=== PATIENT | female | born 1960 | race Caucasian/White ===

== ENCOUNTER 2017-02-24 07:51 | Inpatient (IN) | payer BC, OTHER ==
[~2017-02-24 07:51] MED LIST: MORPHINE SULFATE 15 MG TABLET.SA PO PRN; ROPIVACAINE HCL/PF 100 MG, EPINEPHrine 0.2 MG, KETOROLAC TROMETHAMINE 30 MG in NORMAL S... IJ PRN; TRANEXAMIC ACID 1,000 MG in NORMAL SALINE 100 ML IV PRN; ceFAZolin SODIUM 1 GM VIAL IV PRN
[2017-02-24] MEDS: RINGERS SOLUTION,LACTATED 1,000 ML IV PRN ×2 (08:20→10:30)
--- NOTE | 2017-02-24 09:59 | PREOP NOTE ---
Preoperative Progress Note - Preoperative Changes Changes to Preop Condition?: No Changes
[2017-02-24] MEDS ORDERED: RINGERS SOLUTION,LACTATED 1,000 ML IV ONE ×2 (11:10→12:50)
[2017-02-24] MEDS ORDERED: ACETAMINOPHEN 500 MG TABLET PO PRN (12:44)
[2017-02-24] MEDS ORDERED: diphenhydrAMINE HCL 50 MG/ML VIAL IV PRN (12:44)
[2017-02-24] MEDS ORDERED: PROMETHAZINE HCL 5 MG in DEXTROSE 5 % IN WATER 50 ML IV PRN ×2 (12:44)
[2017-02-24] MEDS ORDERED: ZOLPIDEM TARTRATE 5 MG TABLET PO PRN (12:44)
[2017-02-24] MEDS ORDERED: MAGNESIUM HYDROXIDE 30 ML UDC PO PRN (12:44)
[2017-02-24] MEDS ORDERED: HYDROmorphone HCL 1 MG/ML DISP.SYRIN IV PRN (12:44)
[2017-02-24] MEDS ORDERED: MAG HYDROX/ALUMINUM HYD/SIMETH 30 ML UDC PO PRN (12:44)
--- NOTE | 2017-02-24 12:53 | OR ---
Operative Report - Dictated Report Narrative: Date: 02/24/2017 Preoperative diagnosis: Left hip degenerative joint disease. Postoperative diagnosis: Left hip degenerative joint disease. Intraoperative proximal femur fracture Procedure: Left Total hip arthroplasty. Cerclage cable left proximal femur fracture Surgeon: Edison Welch M.D. Puppy Walker: Jefry Palmer PA-C Anesthesia: Spinal and local periarticular joint injection. Complications: None Specimens: Bone for disposal. Estimated blood loss: 150 milliliters. Retained implants: Depuy Barrow size 4 femoral stem standard offset. Size 54 millimeter outside diameter 3-hole Carney Gription acetabular cup. 54 millimeter outside by 36 millimeter inside diameter highly cross-linked acetabular liner. 36 millimeter diameter +5 millimeter cobalt chromium femoral head. Cancellous 6.5mm screw 30 millimeter length. Synthes 1.7 mm cobalt chrome cable with titanium crimp Indications: Mrs. Sebastian is a 56-year-old female who has had long-standing left hip pain. This patient was followed in my clinic for period of time with significant complaints of left hip pain consistent with arthritic changes. She failed conservative measures including but not limited to activity modification , passage of time, medications, and other conservative measures. Patient wished to proceed with surgical treatment. The risks, benefits, and alternatives were discussed in clinic. The risks of , blood clots, bleeding, infection, nerve/tendon blood vessel/ injury, malposition of components, dislocation and/or instability of joint, intraoperative fracture, postoperative limited range of motion, persistent pain, failure of components, and need for additional procedures. Patient wished to proceed. Consent was obtained after answering all questions. Procedure: After marking the correct extremity on the floor, the patient was taken to the operating room. A timeout was performed. IV antibiotics consisting of Ancef were administered prior to the procedure. A spinal anesthetic was induced by anesthesia. A Mccall catheter was inserted. The patient was then transitioned to a lateral position on a well-padded pegboard. An axillary roll was placed. The head was in neutral position. The non- operative down leg was well-padded with SCD and JENNIFER hose in place. The arms were supported and padded to protect from any undue pressure on the bony prominences and nerves. A well-padded anterior and posterior pelvic and chest posts were secured in order to maintain a stable position of the pelvis. This was placed so that the pelvis was perpendicular to the floor. The body was in line with the pelvis. Once it was felt that we had protected all the bony prominences and the patient was well secured with a safety belt as well, the leg was pre-scrubbed with alcohol, prepped and draped in a standard sterile fashion. A standard anterior lateral hip incision was marked out over the greater trochanter. Ioban drapes were then placed. The skin incision was then made. Sharp dissection with a scalpel utilizing cautery for hemostasis was carried out down to the gluteus and iliotibial band fascia. This was split in line with the skin incision. The greater trochanter bursa was excised. The anterior and posterior margins of the abductor tendon were identified. The anterior 1/2-1/3 of the tendon was tagged and reflected off the greater trochanter leaving a sleeve of tendon for repair at the completion of the case. This exposed the underlying hip joint capsule. A limb length stitch was placed in the skin and referencedd off a issac on the greater trochanter for evaluation of intraoperative limb lengths. An inverted T-type capsulotomy was made extending this up to the brim of the acetabulum. Using Homans to assist with elevation of the soft tissues off the anterior, superior, and inferior aspects of the femoral neck, the hip was then placed in a figure 4 position and the femoral head was dislocated. With the leg in an externally rotated and adducted position, the cutting flag was utilized in order to issac for a standard femoral neck cut approximately a fingerbreadth above the level of the lesser trochanter. This was done with reference to pre-operative films and overall alignment. This was done while protecting the surrounding soft tissues with Homans. The femoral head was then removed and sized for guidance on preparation of the acetabulum. It was noted that there was loss of articular cartilage on both the femoral head and weightbearing portions of the acetabulum. We then returned the leg to the table and turned our attention to the acetabulum. While protecting the surrounding soft tissues, the labrum and remaining tissue in the fovea were excised using a scalpel and cautery. A series of reamers up to size 54 millimeter were utilized to prepare the acetabulum. The final reamer had good purchase and exposed the bleeding subchondral bone. The acetabulum was then thoroughly irrigated ensuring that all bony and cartilaginous materials were removed, and the final acetabular shell was impacted into place. This was placed in approximately 45 degrees of abduction and 20 degrees of anteversion utilizing the outrigger and body axis for alignment. This had a good press fit. 1 6.5mm cancellous screw was placed in the superior posterior quadrant of the acetabulum. The shell was then thoroughly irrigated and the final polyethylene was impacted into place ensuring that it seated completely. This was then protected with a sponge while we returned our attention to the femur. With the leg in a figure 4 position, utilizing Homans for soft tissue protection , a box cutting osteotome, followed by Tenzin awl, followed by serial reamers and broaches were utilized in order to prepare the femur. It was found that a size 4 broach gave good axial and rotational stability. The proximal femur was visualized to ensure that there were no signs of fracture. A series of heads and necks were trialed. It was found that a standard neck and a + 5mm femoral head gave good overall stability. There was minimal longitudinal instability. With the leg in the position of sleep, the femoral head was well covered. Hip range of motion was able to reach full extension and external rotation to greater than 75 degrees prior to impingement along the posterior acetabulum. The hip was able to be flexed to greater than 90 degrees with internal rotation greater than 60 degrees prior to anterior impingement. The limb lengths were near equal based on comparison to the contralateral side and the prior placed limb length stitch. At this point it was felt these were the appropriately sized femoral components as well as neck and femoral head. The trial implants were removed. The femur was thoroughly irrigated. Upon placing the final implants was noted that it subsided more than the trial and then it was discovered that there was a crack over the anterior aspect of the femur between the calcar and the greater trochanter. The implant was then removed. There did not appear to be a posterior or calcar split and the remaining tuberosity was otherwise stable. A single 1.7 mm cobalt chrome cable was then placed in a cerclage fashion staying close to the bone using a passing device. This was placed along the calcar and onto the inferior portion of the greater trochanter. This resulted in compression of the fracture site and the cable was tensioned and crimped. The final implants were then re-impacted into place, and the hip was reduced. After ensuring that there was no additional damage to the proximal femur, the standard periarticular joint injection of ropivacaine, Toradol, and epinephrine were injected into the joint capsule and surrounding soft tissues. Anesthesia then administered intravenous tranexamic acid. The capsule was repaired with a single interrupted #1 Vicryl. The abductor tendon was repaired to the greater trochanter utilizing #5 Ethibond through drill holes. This was oversewn with #1 Vicryl. The fascia was closed with interrupted #1 Vicryl. The wounds were thoroughly irrigated as we closed in layers. The deep and subcutaneous fat layers were closed with 0 and 3-0 Vicryl respectively. The subcutaneous tissue was closed with a running 3-0 Vicryl and the skin with 3-0 Monocryl and Prineo Dermabond dressing. All sponge, needle, blade, and instrument counts were correct prior to closing the wounds. Sterile dressings consisting of 4 x 4's and tape were applied. The patient was awoken and transferred to her hospital bed and then to the postanesthesia care unit in stable condition. Postoperative condition: The plan is to admit to the medical/surgical inpatient floor postoperatively. There will be a projected 2 to 4 day hospital stay. Postoperatively 24 hours of IV antibiotics, pain control, physical therapy, occupational therapy, and medical comanagement will be utilized. Patient will be 50%weightbearing with anterior hip precautions. Postoperative films will be obtained in the recovery room.
[2017-02-24] MEDS: KETOROLAC TROMETHAMINE 15 MG/ML VIAL IV SCH ×2 (13:57→19:05)
[2017-02-24] MEDS: ceFAZolin SODIUM 1 GM in DEXTROSE 5 % IN WATER 100 ML IV SCH ×4 (13:57→20:44)
[2017-02-24] MEDS: DEXTROSE 5%-LACTATED RINGERS 1,000 ML IV PRN ×2 (13:59→22:30)
[2017-02-24] MEDS: oxyCODONE HCL/ACETAMINOPHEN 1 TAB TABLET PO PRN ×2 (15:37→20:46)
[2017-02-24] MEDS: ONDANSETRON HCL/PF 2 MG/ML VIAL IV PRN ×2 (16:15→20:56)
[2017-02-24] MEDS: MORPHINE SULFATE 15 MG TABLET.SA PO SCH (20:46)
[2017-02-24] MEDS: SENNOSIDES/DOCUSATE SODIUM 1 TAB TABLET PO SCH (20:47)
[2017-02-24] MEDS: ROSUVASTATIN CALCIUM 10 MG TABLET PO SCH (20:47)
[2017-02-25] MEDS: KETOROLAC TROMETHAMINE 15 MG/ML VIAL IV SCH ×4 (00:30→18:02)
[2017-02-25] MEDS: ceFAZolin SODIUM 1 GM in DEXTROSE 5 % IN WATER 100 ML IV SCH ×2 (02:18)
[2017-02-25 05:40] LABS: Hematocrit 36.5 % (37.0-47.0); Hemoglobin 11.5 gm/dL (12.5-16.0); Mean Cell Volume 89.5 fl (78-100); Mean Corpuscular Hemoglobin 28.2 pg (27-31); Mean Corpuscular Hgb Conc 31.5 g/dl (32-36); Mean Platelet Volume 9.8 fl (6.0-9.5); Platelet Count 216 K/mm3 (150-450); Red Blood Count 4.08 M/mm3 (4.2-5.4); Red Cell Distribution Width 13.3 % (11.5-14.0); White Blood Count 11.5 K/mm3 (4.0-10.5)
[2017-02-25 05:48] LABS: Anion Gap 9.3 mmol/L (6.8-13.8); BUN/Creatinine Ratio 10.8 (9.0-21.6); Calcium * 8.3 mg/dL (7.9-10.9); Carbon Dioxide 29.6 mmol/L (24-32.6); Estimated Creat Clear 75.7; Potassium 3.9 mmol/L (3.4-4.6)
[2017-02-25] MEDS: LEVOTHYROXINE SODIUM 112 MCG TABLET PO SCH (06:33)
[2017-02-25] MEDS ORDERED: NORMAL SALINE 1,000 ML IV PRN ×2 (08:31)
[2017-02-25] MEDS: MORPHINE SULFATE 15 MG TABLET.SA PO SCH ×2 (08:52→20:09)
--- NOTE | 2017-02-25 09:38 | PN ---
Subjective - Date and Time Seen Date: 02/25/17 Time: 08:45 Subjective Narrative: Patient seen and examined at bedside. Patient admits to feeling very dizzy/ lightheaded at the time of my exam. Mccall catheter removed this AM. Patient has not urinated on her own yet since the catheter was removed. No BM since surgery. Pain adequately controlled. Objective - Review of Systems Generalized/Overall Review: Reports: Weakness, Fatigue. Denies: Fever EENTM: Reports: No Symptoms Reported Respiratory: Reports: No Symptoms Reported Cardiac: Reports: Other - Lightheaded Abdominal: Reports: No Symptoms Reported Genitourinary Symptoms: Reports: No Symptoms Reported Musculoskeletal Complaints: Reports: Joint Pain, Other - left hip pain after surgery Neurological: Reports: No Symptoms Reported Skin: Reports: No Symptoms Reported Endocrine: Reports: No Symptoms Reported Misc: All systems neg except as marked - Vitals Vitals: Last Vital Signs Temp 36.7 C 02/25/17 06:31 Pulse 83 02/25/17 06:31 Resp 16 02/25/17 06:31 BP 109/58 02/25/17 06:31 Pulse Ox 100 02/25/17 06:31 - Abnormal Lab Findings Abnormal Lab Findings: Abnormal Lab Results 02/25/17 02/25/17 Range/Units 05:25 05:25 WBC 11.5 H (4.0-10.5) K/mm3 RBC 4.08 L (4.2-5.4) M/mm3 Hgb 11.5 L (12.5-16.0) gm/dL Hct 36.5 L (37.0-47.0) % MCHC 31.5 L (32-36) g/dl MPV 9.8 H (6.0-9.5) fl Random Glucose 136 H (70-110) mg/dL - Exam Constitutional: Present: Alert, Oriented x3, Cooperative, Well developed, Well nourished, No distress ENT Exam: Present: hearing grossly normal Respiratory: Present: lungs clear, normal breath sounds, no respiratory distress , no accessory muscle use Cardiovascular/Chest: Present: normal peripheral pulses, regular rate, rhythm, no murmur, edema - Trace edema in bilateral lower extremities Abdomen: Present: soft, nontender, nondistended, no rebound tenderness, hypoactive Extremity: Present: lower extremity edema - Trace edema in bilateral lower extremities, other - s/p left total hip with dressing in place Skin Exam: Present: warm/dry, no cyanosis Neurologic: Present: alert, normal mood/affect, oriented x 3 Appearance: Present: appropriate appearance, appropriate insight, neat, no memory impairment Eye contact: Present: cooperative, good eye contact, normal speech Thoughts: Present: normal thought pattern, no apparent hallucination Cauti Physician Documentation - Urinary Catheter Management Urethral (Mccall) Date of Insertion: 02/24/17 Time of Insertion: 10:55 Assessment/Plan Plan Narrative: IMPRESSION & PLAN: Left Hip DJD S/P Left Total Hip Arthroplasty on 02/24/2017 -Post-op cares including pain control and VTE ppx per ortho -VTE prophylaxis: JENNIFER lazcano, SCDs, Lovenox -Continue ongoing PT evaluation and treatment Post-op Normocytic Anemia -Minimally decreased hemoglobin secondary to intraoperative blood loss -No signs of active bleeding -Continue to monitor and recheck hemogram in the AM Hypotension -Patient complained of feeling dizzy/lightheaded this AM. Vitals checked and revealed a blood pressure of 94/52 mmHg. Hypotension most likely secondary to intravascular volume depletion and/or pain medication side effect. Orders placed for a 1L bolus of NS. Continue to monitor BP closely and consider further adjustments or additional boluses of IVF. Patient encouraged to drink plenty of fluids. Keep legs elevated at all times when patient is not ambulating. Leukocytosis -WBC count minimally elevated this AM at 11.5. This is likely reactive related to surgery. Patient is afebrile. Hold off on further work-up for now. Recheck CBC in AM. CHRONIC STABLE MEDICAL CONDITIONS: Hyperlipidemia: Continue home atorvastatin Hypothyroidism: Continue home synthroid - Problems/Diagnosis (1) Degenerative joint disease of left hip Problem: Chronic (2) Status post total hip replacement, left Problem: Acute (3) Postoperative anemia due to acute blood loss Problem: Acute (4) Hypotension Problem: Acute (5) Leukocytosis Problem: Acute (6) Hyperlipidemia Problem: Chronic (7) Hypothyroidism Problem: Chronic
[2017-02-25] MEDS: ONDANSETRON HCL/PF 2 MG/ML VIAL IV PRN ×2 (11:59→20:14)
[2017-02-25] MEDS: ENOXAPARIN SODIUM 40 MG/0.4 ML SYRG SC SCH (12:00)
[2017-02-25] MEDS: oxyCODONE HCL/ACETAMINOPHEN 1 TAB TABLET PO PRN ×3 (12:00→20:09)
--- NOTE | 2017-02-25 16:30 | PN ---
Subjective - Date and Time Seen Date: 02/25/17 Time: 16:28 Subjective Narrative: Subjective: Reports lightheadedness which has improved. Was able to standby the bed with therapy. Pain is well-controlled. Voiding without any complications. Tolerating by mouth intake. Denies any nausea or vomiting. Denies calf pain. Slept well. Physical exam: Alert and oriented to person, place and time Left lower Extremity: Palpable dorsalis pedis pulse. Sensation grossly intact to light touch. Dressings clean and dry. Able to flex and extend ankle and toes. No excessive drainage. Calf and thigh are soft and nontender. Assessment: Postop day 1 status post left total hip arthroplasty. Plan: Continue with physical and occupational therapy 50% weightbearing with anterior hip precautions. Continue with anticoagulation. 24 hours postoperative prophylactic antibiotics. Pain control with goal to rely on oral medications. Continue bowel regimen. Will need 6 weeks with walker or assitive device to protect joint while ambulating during the recovery process. Discharge planning. Discontinue Mccall catheter. Repeat labs in a.m. Objective - Vitals Vitals: Last Vital Signs Temp 36.4 C L 02/25/17 16:17 Pulse 80 02/25/17 16:17 Resp 16 02/25/17 16:17 BP 110/51 02/25/17 16:17 Pulse Ox 98 02/25/17 16:17 - Abnormal Lab Findings Abnormal Lab Findings: Abnormal Lab Results 02/25/17 02/25/17 Range/Units 05:25 05:25 WBC 11.5 H (4.0-10.5) K/mm3 RBC 4.08 L (4.2-5.4) M/mm3 Hgb 11.5 L (12.5-16.0) gm/dL Hct 36.5 L (37.0-47.0) % MCHC 31.5 L (32-36) g/dl MPV 9.8 H (6.0-9.5) fl Random Glucose 136 H (70-110) mg/dL Cauti Physician Documentation - Urinary Catheter Management Urethral (Mccall) Date of Insertion: 02/24/17 Time of Insertion: 10:55 Date of Removal: 02/25/17 Time of Removal: 06:30 Assessment/Plan - Problems/Diagnosis (1) Acute blood loss anemia Problem: Acute (2) Hypotension Problem: Chronic (3) Status post total hip replacement, left Problem: Acute (4) Hyperlipidemia Problem: Chronic (5) Hypothyroidism Problem: Chronic
[2017-02-25] MEDS: SENNOSIDES/DOCUSATE SODIUM 1 TAB TABLET PO SCH (20:09)
[2017-02-25] MEDS: ROSUVASTATIN CALCIUM 10 MG TABLET PO SCH (20:10)
[2017-02-26] MEDS: KETOROLAC TROMETHAMINE 15 MG/ML VIAL IV SCH ×2 (00:47→05:59)
[2017-02-26] MEDS: oxyCODONE HCL/ACETAMINOPHEN 1 TAB TABLET PO PRN ×5 (00:47→22:27)
[2017-02-26] MEDS: ONDANSETRON HCL/PF 2 MG/ML VIAL IV PRN (05:59)
[2017-02-26 06:00] LABS: Hematocrit 33.7 % (37.0-47.0); Hemoglobin 10.7 gm/dL (12.5-16.0); Mean Cell Volume 90.3 fl (78-100); Mean Corpuscular Hemoglobin 28.7 pg (27-31); Mean Corpuscular Hgb Conc 31.8 g/dl (32-36); Mean Platelet Volume 9.9 fl (6.0-9.5); Platelet Count 198 K/mm3 (150-450); Red Blood Count 3.73 M/mm3 (4.2-5.4); Red Cell Distribution Width 13.7 % (11.5-14.0); White Blood Count 12.3 K/mm3 (4.0-10.5)
[2017-02-26 06:24] LABS: Anion Gap 8.7 mmol/L (6.8-13.8); Calcium * 8.4 mg/dL (7.9-10.9); Carbon Dioxide 30.1 mmol/L (24-32.6); Estimated Creat Clear 72.8; Potassium 3.8 mmol/L (3.4-4.6)
[2017-02-26] MEDS: LEVOTHYROXINE SODIUM 112 MCG TABLET PO SCH (06:45)
[2017-02-26] MEDS: MORPHINE SULFATE 15 MG TABLET.SA PO SCH (08:56)
--- NOTE | 2017-02-26 10:24 | PN ---
Subjective - Date and Time Seen Date: 02/26/17 Time: 10:23 Subjective Narrative: Subjective: Reports intermittent dizziness with mild nausea which is improved a little bit as of this morning. Was able to walk in the encarnacion with therapy. Pain is well-controlled. Voiding without any complications. Tolerating by mouth intake. Physical exam: Alert and oriented to person, place and time Left lower Extremity: Palpable dorsalis pedis pulse. Sensation grossly intact to light touch. Dressings clean and dry. Able to flex and extend ankle and toes. No excessive drainage. Calf and thigh are soft and nontender. Assessment: Postop day 2 status post left total hip arthroplasty. Plan: Continue with physical and occupational therapy 50% weightbearing with anterior hip precautions. Continue with anticoagulation. 24 hours postoperative prophylactic antibiotics. Pain control with goal to rely on oral medications. Continue bowel regimen. Will need 6 weeks with walker or assitive device to protect joint while ambulating during the recovery process. Discharge planning. The MS Thomas was felt this morning and we will monitor for improvement in her lightheadedness. We also discussed possible Zofran as the culprit. Objective - Vitals Vitals: Last Vital Signs Temp 36.8 C 02/26/17 07:53 Pulse 80 02/26/17 07:53 Resp 18 02/26/17 07:53 BP 113/55 02/26/17 07:53 Pulse Ox 96 02/26/17 07:53 - Abnormal Lab Findings Abnormal Lab Findings: Abnormal Lab Results 02/26/17 Range/Units 05:54 WBC 12.3 H (4.0-10.5) K/mm3 RBC 3.73 L (4.2-5.4) M/mm3 Hgb 10.7 L (12.5-16.0) gm/dL Hct 33.7 L (37.0-47.0) % MCHC 31.8 L (32-36) g/dl MPV 9.9 H (6.0-9.5) fl Cauti Physician Documentation - Urinary Catheter Management Urethral (Mccall) Date of Insertion: 02/24/17 Time of Insertion: 10:55 Date of Removal: 02/25/17 Time of Removal: 06:30 Assessment/Plan - Problems/Diagnosis (1) Acute blood loss anemia Problem: Acute (2) Hypotension Problem: Chronic (3) Status post total hip replacement, left Problem: Acute (4) Hyperlipidemia Problem: Chronic (5) Hypothyroidism Problem: Chronic
[2017-02-26] MEDS: ENOXAPARIN SODIUM 40 MG/0.4 ML SYRG SC SCH (11:29)
[2017-02-26] MEDS: SENNOSIDES/DOCUSATE SODIUM 1 TAB TABLET PO SCH (21:06)
[2017-02-26] MEDS: ROSUVASTATIN CALCIUM 10 MG TABLET PO SCH (21:06)
--- NOTE | 2017-02-26 23:48 | PN ---
Subjective - Date and Time Seen Date: 02/26/17 Time: 16:30 Objective - Vitals Vitals: Last Vital Signs Temp 36.9 C 02/26/17 20:04 Pulse 91 02/26/17 20:04 Resp 18 02/26/17 20:04 BP 118/62 02/26/17 20:04 Pulse Ox 95 02/26/17 20:04 - Abnormal Lab Findings Abnormal Lab Findings: Abnormal Lab Results 02/26/17 Range/Units 05:54 WBC 12.3 H (4.0-10.5) K/mm3 RBC 3.73 L (4.2-5.4) M/mm3 Hgb 10.7 L (12.5-16.0) gm/dL Hct 33.7 L (37.0-47.0) % MCHC 31.8 L (32-36) g/dl MPV 9.9 H (6.0-9.5) fl Cauti Physician Documentation - Urinary Catheter Management Urethral (Mccall) Date of Insertion: 02/24/17 Time of Insertion: 10:55 Date of Removal: 02/25/17 Time of Removal: 06:30
[2017-02-27] MEDS: oxyCODONE HCL/ACETAMINOPHEN 1 TAB TABLET PO PRN ×3 (02:31→12:46)
[2017-02-27] MEDS: LEVOTHYROXINE SODIUM 112 MCG TABLET PO SCH (06:23)
[2017-02-27] MEDS: ONDANSETRON HCL/PF 2 MG/ML VIAL IV PRN (08:09)
--- NOTE | 2017-02-27 08:10 | DS ---
(1) Acute blood loss anemia Problem: Acute (2) Hypotension Problem: Chronic (3) Status post total hip replacement, left Problem: Acute (4) Hyperlipidemia Problem: Chronic (5) Hypothyroidism Problem: Chronic Description of Stay: Mrs. Sebastian was admitted to the floor after undergoing left total hip arthroplasty. Tolerated this well. Was admitted to the floor postoperatively for 24 hours of IV antibiotics, pain control, medical comanagement, and occupational and physical therapy. OT and PT were consulted to assist with activities of daily living and ambulation. Was made 50% weightbearing and anterior hip precautions. Pain was initially controlled with IV regimen. This was transitioned to oral once tolerating a by mouth intake. She did have some lightheadedness and her long-acting pain medicine was held which improved her lightheadedness. Was resumed on home diet and medications. Had a Mccall catheter inserted and the operating room which was discontinued on postoperative day 1. Lovenox SCD and JENNIFER hose were utilized for DVT prophylaxis. Vital signs remained stable to the hospital course. Serial labs were obtained which showed a final hemoglobin of 10.7 grams. BMP was reviewed and was stable. Physical examination throughout the hospital course showed an extremity that had sensation that was intact to light touch, palpable pulses, a benign wound, motor intact to the toes, ankle, and knee. Once an oral pain regimen was tolerated and physical therapy goals were met, it was felt that they were stable for discharge to home. Instructions: Continue with 50% weightbearing anterior hip precautions. She is okay to shower as long as there is no drainage from the wound. Otherwise she is to keep the wound clean and dry. Cover with dry gauze and tape. Change every 2-3 days as needed. Cover wound while showering. Continue with physical therapy. Resume home diet. Report any fever over 101.5 Fahrenheit, uncontrolled pain, increased drainage, foul odor of drainage, new or increased calf pain or shortness of breath, or any other significant complaints. A 325mg dialy aspirin will be started after finishing anticoagulation if not allergic. Continue with JENNIFER hose on the operative extremity until instructed otherwise. No driving until instructed otherwise. Follow up in approximately 10-14 days. Procedures Performed: see notes below List Procedures: Left total hip arthroplasty Discharge Disposition: Home self care Disposition: Home self-care Condition: Good Discharge Activity: Other - 50% weightbearing, anterior hip precautions Discharge Diet: General/regular food Referrals: Phil Gould DO [Primary Care Provider] - Additional Patient Instructions (free text): Follow-up in the office with Dr. Welch on 03/11/17@10:30am. Prescriptions (Any new or edited meds): Enoxaparin Sodium [Lovenox] 40 mg SC Q24H #7 disp.syrin oxyCODONE HCL/ACETAMINOPHEN [Percocet 5 MG/325 MG] 2 tab PO Q4H PRN #90 tablet PRN Reason: Moderate Pain Complete Home Medications List: Complete Home Medication List: Atorvastatin Calcium [Lipitor] 20 mg PO HS 02/14/17 Ibuprofen [Motrin] 200 - 800 mg PO Q8H PRN 02/14/17 Levothyroxine Sodium [Synthroid] 112 mcg PO DAILY 02/14/17 Naproxen Sodium [Aleve] 440 mg PO DAILY PRN 02/14/17 Enoxaparin Sodium [Lovenox] 40 mg SC Q24H #7 disp.syrin 02/27/17 Sennosides/Docusate Sodium [Senokot-S] 2 tab PO HS tablet 02/27/17 oxyCODONE HCL/ACETAMINOPHEN [Percocet 5 MG/325 MG] 2 tab PO Q4H PRN #90 tablet 02/27/17
[2017-02-27 11:00] VITALS: BP 124/78
[2017-02-27] MEDS: ENOXAPARIN SODIUM 40 MG/0.4 ML SYRG SC SCH (12:47)
== END 2017-02-27 13:42 | disposition home or self-care (01) | DRG 470 ==
LOC: MS 07:51
PROVIDERS: ADMIT Orthopaedic Surgery; ATTEND Orthopaedic Surgery
PROC: 0QH704Z Insertion of Internal Fixation Device into Left Upper Femur, Open Approach (ICD-10-PCS; 2017-02-24)
PROC: 0SRB0JZ Replacement of Left Hip Joint with Synthetic Substitute, Open Approach (ICD-10-PCS; principal; 2017-02-24 11:30)
DX: M16.12 Unilateral primary osteoarthritis, left hip (principal); D62 Acute posthemorrhagic anemia; M96.662 Fracture of femur following insertion of orthopedic implant, joint prosthesis, or bone plate, left leg; Y79.2 Prosthetic and other implants, materials and accessory orthopedic devices associated with adverse incidents; Y92.234 Operating room of hospital as the place of occurrence of the external cause; E03.9 Hypothyroidism, unspecified; E78.5 Hyperlipidemia, unspecified; I95.89 Other hypotension
CPT/HCPCS: 27130; 27248; 36415; 73502; 80048; 85027; 97110; 97116; 97162; 97166; 97530; J2405

== ENCOUNTER 2017-04-28 14:58 | Emergency (ER) | payer BC ==
[2017-04-28 15:09] VITALS: BP 150/68
[2017-04-28 15:21] LABS: Urine Bilirubin Negative (NEGATIVE); Urine Blood 50 /ul (NEGATIVE); Urine Ketone Negative (NEGATIVE); Urine Nitrite Negative (NEGATIVE); Urine Protein 15 mg/dL (NEGATIVE); Urine Urobilinogen Normal (NORMAL); Urine pH 7.5 pH (5.0-7.0)
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
[2017-04-28 15:31] LABS: Urine Appearance Cloudy; Urine Bacteria 3+; Urine Color Pale Yellow; Urine Mucus Moderate - 2+; Urine RBC >50 /hpf (0-5); Urine WBC >50 /hpf (0-5)
[2017-04-28 15:39] LABS: Hematocrit 42.4 % (37.0-47.0); Hemoglobin 13.8 gm/dL (12.5-16.0); Mean Cell Volume 88.1 fl (78-100); Mean Corpuscular Hemoglobin 28.7 pg (27-31); Mean Corpuscular Hgb Conc 32.5 g/dl (32-36); Mean Platelet Volume 9.5 fl (6.0-9.5); Neutrophil # 8.4 K/mm3 (1.3-6.0); Neutrophil % 65.3 % (42-75.0); Platelet Count 278 K/mm3 (150-450); Red Blood Count 4.81 M/mm3 (4.2-5.4); Red Cell Distribution Width 14.5 % (11.5-14.0); White Blood Count 12.8 K/mm3 (4.0-10.5)
[2017-04-28] MEDS ORDERED: PHENAZOPYRIDINE HCL 100 MG TABLET PO ONE (15:39)
[2017-04-28] MEDS ORDERED: PHENAZOPYRIDINE HCL 100 MG TABLET ONE (15:50)
[2017-04-28 15:53] LABS: Albumin * 3.6 gm/dl (3.4-5.0); Anion Gap 14.4 mmol/L (6.8-13.8); BUN/Creatinine Ratio 12.5 (9.0-21.6); Bilirubin, Total 0.5 mg/dL (0.0-1.1); Ca. Corrected For Albumin 9.2 mg/dL (8.4-10.2); Calcium * 9.2 mg/dL (7.9-10.9); Carbon Dioxide 26.4 mmol/L (24-32.6); Potassium 3.8 mmol/L (3.4-4.6); Total Protein 8.6 gm/dL (6.2-8.2)
== END 2017-04-28 16:13 | disposition home or self-care (01) ==
LOC: ER 14:58
DX: N10 Acute pyelonephritis (principal); E03.9 Hypothyroidism, unspecified; E78.5 Hyperlipidemia, unspecified